=== PATIENT | female | born 1965 | race Caucasian/White ===

== ENCOUNTER 2020-01-26 04:14 | Inpatient (IN) | payer MEDICAID ==
[2020-01-26] VITALS (14 sets, daily range): BP systolic 101–152; BP diastolic 51–96
[~2020-01-26] VITALS: Ht 160 cm; Wt 137.3 kg
[2020-01-26] MEDS ORDERED: ATOR20TA66 PO (04:32)
[2020-01-26] MEDS ORDERED: MONT10TA21 PO (04:32)
[2020-01-26] MEDS ORDERED: FURO40TA4 PO (04:32)
[2020-01-26] MEDS ORDERED: LOSA100T57 PO (04:32)
[2020-01-26] MEDS ORDERED: ESCI10TA61 PO (04:32)
[2020-01-26] MEDS ORDERED: AMIT25TA9 PO (04:32)
[2020-01-26] MEDS ORDERED: LORA-660 PO (04:32)
[2020-01-26] MEDS ORDERED: POTA8CAP20 PO (04:32)
[2020-01-26] MEDS ORDERED: PROM25TA14 PO (04:32)
[2020-01-26] MEDS ORDERED: ALOG12.52 PO (04:32)
[2020-01-26] MEDS ORDERED: FLO0.4C PO (04:32)
[2020-01-26] MEDS ORDERED: AMOX-580 PO (04:32)
[2020-01-26] MEDS ORDERED: GABA-530 PO (04:32)
[2020-01-26] MEDS ORDERED: NAPR-996 PO (04:32)
[2020-01-26] MEDS ORDERED: ondansetron/PF 4mg/2ml inj IV ONE (04:55)
[2020-01-26] MEDS ORDERED: morphine 2 MG/ML inj. syringe IV PRN ×2 (05:25)
[2020-01-26] MEDS ORDERED: mag hydrox/Alum hydrox/simeth 30ml oral suspension PO PRN (05:25)
[2020-01-26] MEDS ORDERED: acetaminophen 325mg tablet PO PRN ×2 (05:25→20:40)
[2020-01-26] MEDS ORDERED: magnesium hydroxide 30ml (MOM) UD suspension PO PRN (05:25)
[2020-01-26] MEDS ORDERED: potassium Cl 20 mEq SR tablet PO PRN ×2 (05:25)
[2020-01-26] MEDS ORDERED: potassium CL 10mEq/100ml bag 100 ML IV PRN ×2 (05:25)
[2020-01-26] MEDS ORDERED: ondansetron/PF 4mg/2ml inj IV PRN (05:25)
[2020-01-26 05:27] LABS: BASOPHILS % (AUTO) 0.2 % (0-1); EOSINOPHILS # (AUTO) 0.1 X10'3 (0-0.9); EOSINOPHILS % (AUTO) 0.6 % (0-6); HEMATOCRIT 32.7 % (35.0-45.0); HEMOGLOBIN 10.7 g/dl (12.0-16.0); LYMPHOCYTES # (AUTO) 0.8 X10'3 (1.1-4.8); LYMPHOCYTES % (AUTO) 5.4 % (21-51); MEAN CORPUSCULAR HEMOGLOBIN 27.9 PG (27.0-31.0); MEAN CORPUSCULAR HGB CONC 32.7 g/dL (33.0-36.5); MEAN CORPUSCULAR VOLUME 85.4 FL (78-98); MEAN PLATELET VOLUME 8.5 FL (7.4-10.4); MONOCYTES # (AUTO) 0.9 X10'3 (0-0.9); MONOCYTES % (AUTO) 6.2 % (2-12); NEUTROPHILS # (AUTO) 13.2 X10'3 (1.8-7.7); NEUTROPHILS % (AUTO) 87.6 % (42-75); PLATELET COUNT 260 X10'3 (140-440); RED BLOOD COUNT 3.83 X10'6 (4.20-5.60); RED CELL DISTRIBUTION WIDTH 15.2 % (11.5-14.5); WHITE BLOOD COUNT 15.1 X10'3 (4.5-11.0)
[2020-01-26 05:41] LABS: ALBUMIN 2.8 G/DL (3.4-5.0); ANION GAP 10 (8-16); BLOOD UREA NITROGEN 25 MG/DL (7-18); BUN/CREATININE RATIO 11.4 (6.6-38.0); CALCIUM 8.4 MG/DL (8.5-10.1); CHLORIDE 107 MMOL/L (99-107); GLUCOSE 124 MG/DL (70-104); POTASSIUM 3.8 MMOL/L (3.5-5.1); SODIUM 141 MMOL/L (135-145); TOTAL CARBON DIOXIDE 24.1 MMOL/L (24-32); eGFR 23 ML/MIN
[2020-01-26] MEDS: normal saline 1000ml 1,000 ML IV SCH ×2 (05:42→15:25)
[2020-01-26] MEDS ORDERED: glucagon, human recombinant 1mg kit SUBCUT PRN (05:50)
[2020-01-26] MEDS ORDERED: dextrose ORAL solution 15 GM/59 ML bottle PO PRN ×2 (05:50)
[2020-01-26] MEDS ORDERED: MESSAGE TO PHARMACY PO ONE (05:50)
[2020-01-26] MEDS ORDERED: dextrose 50%-water 50ml dispensing syringe IV PRN ×2 (05:50)
[2020-01-26] MEDS ORDERED: insulin Lispro (HumaLOG) vial - multi-dose SQ SCH (05:50)
--- NOTE | 2020-01-26 06:18 | NUR ---
Assumed care of pt from NAVI Jimenez. Pt resting comfortably in bed in no distress. Agree with previous assessment. No changes to report. Pt awaiting IPA.
[2020-01-26] MEDS ORDERED: iohexol 300 MG/1 ML 50ml polymer ONE (07:55)
[2020-01-26] MEDS: gabapentin 100mg capsule PO SCH ×3 (08:00→20:42)
[2020-01-26] MEDS: amitriptyline 25mg tablet PO SCH (08:00)
[2020-01-26] MEDS: montelukast 10mg tablet PO SCH (08:00)
[2020-01-26] MEDS: tamsulosin 0.4mg capsule PO SCH (08:00)
[2020-01-26] MEDS: K and/or MAG REPLACEMENT MC SCH ×2 (08:00→20:00)
[2020-01-26] MEDS: ESCITALOPRAM OXALATE 5 MG TABLET PO SCH (08:00)
[2020-01-26] MEDS: atorvastatin 20mg tablet PO SCH (08:00)
[2020-01-26] MEDS: losartan 50mg tablet PO SCH (08:00)
[2020-01-26] MEDS: loratadine 10mg tablet PO SCH (08:00)
--- NOTE | 2020-01-26 08:11 | NUR ---
RECEIVED REPORT FROM NAVI MCCLELLAN. AWAITING PATIENT ARRIVAL TO FLOOR.
--- NOTE | 2020-01-26 08:22 | NUR ---
RECEIVED PATIENT TO ROOM 350A VIA [facility]. PATIENT ABLE TO AMBULATE TO BED FROM [facility] INDEPENDENTLY. NO COMPLAINTS AT THIS TIME. ORIENTED PATIENT TO ROOM AND CALL LIGHT. CALL LIGHT PLACED WITHIN PATIENT'S REACH. BED LOW AND LOCKED. BELONGINGS AT PATIENT'S BEDSIDE.
[2020-01-26] MEDS: CefTRIAXone/D5W-Rocephin 1gm 50 ML IV SCH (08:35)
--- NOTE | 2020-01-26 09:16 | NUR ---
DR BARNEY NOTIFIED THAT PATIENT REPORTS SHE HAD TAKEN NAPROXEN YESTERDAY ALSO THAT SHE DOES HAVE HX OF SLEEP APNEA. NO NEED FOR CHEST XRAY PER DR BARNEY AND NO NEW ORDERS FROM DR BARNEY.
--- NOTE | 2020-01-26 09:28 | NUR ---
DR WORKMAN NOTIFIED THAT PATIENT HAD TAKEN 500MG OF NAPROXEN "YESTERDAY" PER PATIENT. NO NEW ORDERS.
--- NOTE | 2020-01-26 09:38 | NUR ---
PATIENT DOWN TO OR
[2020-01-26] MEDS ORDERED: sevoflurane 250ml liquid IH ONE (09:46)
[2020-01-26] MEDS ORDERED: famotidine/PF 10 mg/ml inj IV ONE (09:47)
[2020-01-26] MEDS ORDERED: midazolam 2 mg/2 ml injection ONE (10:12)
[2020-01-26] MEDS ORDERED: dexamethasone sod phosphate 4mg/ml inj. ONE (10:13)
[2020-01-26] MEDS ORDERED: LIDOcaine 2% (20mg/ml) 5ml vial ONE (10:13)
[2020-01-26] MEDS ORDERED: propofol inj 20 ML IV ONE (10:13)
--- NOTE | 2020-01-26 10:28 | NUR ---
RECEIVED FROM OR VIA BED ACCOMPANIED BY ANESTHESIOLOGIST DR BARNEY. REPORT GIVEN. PT DROWSY BUT AROUSES EASILY, DENIES PAIN AT THIS TIME. SKIN PINK AND WARM, GOOD CAP REFILL,ABD SOFT, 20 GAUGE PIV R AC PATENT AND RUNNING LR AT 100 ML/HR. VSS, RESTING COMFORTABLY.
--- NOTE | 2020-01-26 10:55 | NUR ---
RECEIVED REPORT FROM NAVI RICARDO. AWAITING PATIENT ARRIVAL BACK TO ROOM 350B.
--- NOTE | 2020-01-26 11:08 | NUR ---
TRANSPORTED VIA BED ACCOMPANIED BY MYSELF. REPORT GIVEN. PT AWAKE AND ALERT, DENIES PAIN AT THIS TIME. SKIN PINK AND WARM, GOOD CAP REFILL,ABD SOFT, 20 GAUGE PIV R AC PATENT AND RUNNING LR AT 100 ML/HR. VSS, RESTING COMFORTABLY. LEFT IN CARE OF SURGICAL AID LAITH
--- NOTE | 2020-01-26 11:39 | NUR ---
THIS NURSE WAS ON BREAK WHEN PATIENT RETURNED TO ROOM. BREAK RNMELY AND PCT KYRIE WERE AT BEDSIDE WHEN PATIENT BACK TO ROOM. WENT TO ASSESS PATIENT WHEN BREAK OVER AND PATIENT DENIES PAIN AT THIS TIME BUT C/O BEING COLD. PATIENT IN BED WITH MULTIPLE LAYERS OF BLANKET HOWEVER SHIVERING WITH TIP OF NOSE BLUISH PURPLE DISCOLORATION AND COOL TO TOUCH. X4 MORE WARM BLANKETS PLACED ON PATIENT. PATIENT VSS 98.5, 96, 20 , 111/59. WILL CONTINUE TO MONITOR.
--- NOTE | 2020-01-26 11:59 | NUR ---
PATIENT APPEARS TO BE RESTING COMFORTABLY WITH EYES CLOSED, RESPIRATIONS EVEN AND UNLABORED, NO LONGER SHIVERING, SKIN WARM AND PINK. WILL CONTINUE TO MONITOR.
--- NOTE | 2020-01-26 13:00 | NUR ---
Patient able to void and have bm but did not have hat in place when she voided so unable to measure amount. patient also refusing to have post residual bladder scan done at this time. Patient appears to be agitated, teary eyed, placing both hands up and states, "I am feeling flustered right now. I just need some fresh air." Patient requesting fan. Will continue to monitor.
--- NOTE | 2020-01-26 15:16 | NUR ---
DM Consult: A1C 7.2 hx T2DM. Pt to OR today for cystoscopy, right retrograde pyelogram, right ureteral stent placement per MD; would benefit from DM ed once stable prior to discharge. Would benefit from carb controlled diet post-op. Addendum: 01/26/20 at [address] Amended: Links added.
--- NOTE | 2020-01-26 18:26 | NUR ---
Patient in room [facility]. I have received report from Christiano MCELROY and had the opportunity to ask questions and assume patient care.
--- NOTE | 2020-01-26 18:31 | NUR ---
Problems reprioritized. Patient report given, questions answered & plan of care reviewed with sunita zhong.
--- NOTE | 2020-01-26 23:39 | NUR ---
Patient now on her 4th void. No longer need to scan. Addendum: 01/26/20 at 2340 by Meghan Shah RN Amended: Links added.
[2020-01-27] VITALS: BP 103/55
[2020-01-27] MEDS: normal saline 1000ml 1,000 ML IV SCH ×2 (01:25→06:08)
--- NOTE | 2020-01-27 06:00 | NUR ---
Problems reprioritized. Patient report given, questions answered & plan of care reviewed with Christiano MCELROY.
[2020-01-27 06:06] LABS: BASOPHILS % (AUTO) 0.2 % (0-1); EOSINOPHILS % (AUTO) 0.1 % (0-6); HEMATOCRIT 30.5 % (35.0-45.0); LYMPHOCYTES # (AUTO) 0.6 X10'3 (1.1-4.8); LYMPHOCYTES % (AUTO) 3.5 % (21-51); MEAN CORPUSCULAR HEMOGLOBIN 29.1 PG (27.0-31.0); MEAN CORPUSCULAR HGB CONC 32.9 g/dL (33.0-36.5); MEAN CORPUSCULAR VOLUME 88.2 FL (78-98); MEAN PLATELET VOLUME 8.9 FL (7.4-10.4); MONOCYTES # (AUTO) 0.9 X10'3 (0-0.9); MONOCYTES % (AUTO) 5.4 % (2-12); NEUTROPHILS # (AUTO) 15.7 X10'3 (1.8-7.7); NEUTROPHILS % (AUTO) 90.8 % (42-75); PLATELET COUNT 208 X10'3 (140-440); RED BLOOD COUNT 3.46 X10'6 (4.20-5.60); RED CELL DISTRIBUTION WIDTH 15.4 % (11.5-14.5); WHITE BLOOD COUNT 17.3 X10'3 (4.5-11.0)
[2020-01-27 06:14] LABS: ALANINE AMINOTRANSFERASE 18 U/L (12-78); ALBUMIN 2.4 G/DL (3.4-5.0); ALBUMIN/GLOBULIN RATIO 0.6 (1.1-1.5); ALKALINE PHOSPHATASE 58 IU/L (46-116); ANION GAP 7 (8-16); ASPARTATE AMINO TRANSFERASE 17 U/L (10-37); BILIRUBIN,TOTAL 0.4 MG/DL (0.1-1.0); BLOOD UREA NITROGEN 23 MG/DL (7-18); BUN/CREATININE RATIO 11.4 (6.6-38.0); CALCIUM 8.1 MG/DL (8.5-10.1); CHLORIDE 109 MMOL/L (99-107); CREATININE 2.02 MG/DL (0.40-0.90); GLUCOSE 129 MG/DL (70-104); SODIUM 142 MMOL/L (135-145); TOTAL CARBON DIOXIDE 26.3 MMOL/L (24-32); TOTAL PROTEIN 6.4 G/DL (6.4-8.2); eGFR 26 ML/MIN
--- NOTE | 2020-01-27 06:21 | NUR ---
Patient in room [facility]. I have received report from NAVI Christianson and had the opportunity to ask questions and assume patient care.
[2020-01-27 07:00] VITALS: BP 108/50
[2020-01-27] MEDS: K and/or MAG REPLACEMENT MC SCH (07:41)
[2020-01-27] MEDS: amitriptyline 25mg tablet PO SCH (07:42)
[2020-01-27] MEDS: CefTRIAXone/D5W-Rocephin 1gm 50 ML IV SCH (07:42)
[2020-01-27] MEDS: gabapentin 100mg capsule PO SCH ×2 (07:42→13:17)
[2020-01-27] MEDS: tamsulosin 0.4mg capsule PO SCH (07:42)
[2020-01-27] MEDS: losartan 50mg tablet PO SCH (07:42)
[2020-01-27] MEDS: atorvastatin 20mg tablet PO SCH (07:42)
[2020-01-27] MEDS: ESCITALOPRAM OXALATE 5 MG TABLET PO SCH (07:42)
[2020-01-27] MEDS: montelukast 10mg tablet PO SCH (07:42)
[2020-01-27] MEDS: loratadine 10mg tablet PO SCH (07:46)
--- NOTE | 2020-01-27 09:54 | NUR ---
Dr. Sanders was in to see patient this morning. Patient reported to Dr. Sanders c/o headache. Dr. Sanders educated patient that, that is normal as patient has been given "lots of fluids and other meds." Tylenol was administered to patient for c/o headache. Patient reports headache remains. Offered to patient lights off, doors closed, quiet time. Patient in room on telephone at this time.
[2020-01-27 12:28] VITALS: BP 99/59
[2020-01-27] MEDS ORDERED: LEVO500T2 PO (15:12)
--- NOTE | 2020-01-27 15:22 | NUR ---
F/u (01/26): Pt seen by MARIA G for written DM ed w/ RD contact information provided; pt declines verbal ed at this time as well as any questions/concerns. MARIA G encouraged pt to contact dietitian's office if further questions. Addendum: 01/27/20 at [address] Amended: Links added.
--- NOTE | 2020-01-27 16:20 | NUR ---
Patient alert and oriented and no apparent distress. Denies any complaints. Discussed with patient discharge instructions and new prescriptions. Patient verbalizes understanding of discharge instructions. Patient dc'd with all personal belongings including home meds that were stored in pharmacy. Patient escorted out in wheelchair accompanied by [facility] staff. Patients son awaits in front of lobby to transport patient home.
[2020-01-27] MEDS ORDERED: lactobacillus rhamnosus 10,000 MMU CELLS/CAPSULE PO SCH (20:00)
== END 2020-01-27 16:22 | disposition home or self-care (01) | DRG 463 ==
LOC: ER 04:14 → ED HOLD 05:25 → SUR 3N 08:42
PROVIDERS: ADMIT Internal Medicine; ATTEND Internal Medicine
PROC: BT1D1ZZ Fluoroscopy of Right Kidney, Ureter and Bladder using Low Osmolar Contrast (ICD-10-PCS; 2020-01-26)
PROC: 0T768DZ Dilation of Right Ureter with Intraluminal Device, Via Natural or Artificial Opening Endoscopic (ICD-10-PCS; principal; 2020-01-26 09:49)
DX: N13.6 Pyonephrosis (principal); E11.40 Type 2 diabetes mellitus with diabetic neuropathy, unspecified; I10 Essential (primary) hypertension; E78.5 Hyperlipidemia, unspecified; F32.9 Major depressive disorder, single episode, unspecified; E66.9 Obesity, unspecified; Z20.828 Contact with and (suspected) exposure to other viral communicable diseases; Z88.2 Allergy status to sulfonamides; Z88.8 Allergy status to other drugs, medicaments and biological substances; Z79.899 Other long term (current) drug therapy; Z68.43 Body mass index [BMI] 50.0-59.9, adult
CPT/HCPCS: 36415; 80048; 80053; 82948; 83036; 83880; 85025; 85610; 87081; 93005; 96374; 99285; A4618; C1758; C1769; C2617; G0378; J0696; J1100; J1815; J2001; J2250; J2405; J2704; J3490; J7030; Q9967